=== PATIENT | male | born 1970 | race Hispanic/Latino ===

== ENCOUNTER → 2017-12-10 | Outpatient (CLI) | payer OTHER ==
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
== END ==
LOC: RAD 15:55
PROVIDERS: ATTEND Internal Medicine
DX: R07.9 Chest pain, unspecified (principal)
CPT/HCPCS: 71046